=== PATIENT | male | born 1990 | race Caucasian/White ===

== ENCOUNTER 2020-10-09 14:06 | Emergency (ER) | payer OTHER, SELFPAY ==
[2020-10-09 14:20] VITALS: BP 108/78; PULSE 89; RESP 16; TEMP 36.9; O2SAT 93; BMI 31.5
[2020-10-09 14:38] VITALS: BP 133/82
--- NOTE | 2020-10-09 14:40 | XRR_ITS ---
PROCEDURE INFORMATION: Exam: XR Chest Exam date and time: 10/09/2020 2:40 PM Age: 30 years old Clinical indication: Cough TECHNIQUE: Imaging protocol: XR of the chest. Views: 1 view. COMPARISON: No relevant prior studies available. FINDINGS: Lungs: Unremarkable. No consolidation. Pleural spaces: Unremarkable. No pleural effusion. No pneumothorax. Heart/Mediastinum: Unremarkable. No cardiomegaly. Bones/joints: Unremarkable. XR/XR chest 1V portable [id number] IMPRESSION: No acute findings.
--- NOTE | 2020-10-09 14:40 | W.ED.COVID ---
HPI - COVID General: Chief Complaint: COVID symptoms Stated Complaint: congestion, hot flashes, lethargic Time Seen by Provider: 10/09/20 14:36 Triage information: Has fever, cough or shortness of breath. Exposure to COVID + person last 14 days History of Present Illness: HPI Narrative: Patient has been off work and sick since the of this month. Is scheduled for surgery on his back he has 2 herniated disc. Patient has had upper respiratory problems and lung problems and been placed on albuterol inhaler and doxycycline here recently. Been tested for Covid weekly at work is been negative. Did have a positive exposure on of this month not been tested since then. Has Covid-like symptoms which include muscle aches headache sore throat loss of taste and smell nausea. MD complaint: reported COVID exposure Prior covid testing: yes, results known COVID 19 common symptoms: positive chills, cough, non-productive cough, fatigue, body aches, headache(s), throat pain and nausea COVID 19 other sytmptoms: negative chest pain Onset (ago): day(s) Severity: moderate Pertinent comorbid conditions: other (Asthma) COVID Results: No Data to Display Review of Systems Const: Reports: chills, body aches and fatigue Eyes: Denies: change in vision or blurry vision ENMT: Reports: throat pain Card: Denies: chest pain or dyspnea on exertion Resp: Reports: non-productive cough GI: Reports: nausea : Denies: difficulty urinating Musc: Denies: extremity pain Skin/Breast: Denies: rash Neuro: Reports: headache(s) Psych: Denies: anxiety or depression Bakari/Lymph: Denies: easy bruising PFSH ED PFSH: Social History (Updated 09/30/20 @ 12:46 by Nilson Palomares LPN) Smoking and tobacco status: never smoked Alcohol intake: current Alcohol intake frequency: holidays/special occasions only Physical Exam Const: COMMON NORMALS: no acute distress, average body habitus and patient oriented x3 HENMT: COMMON NORMALS: normocephalic HEAD & SCALP: normal to inspection and normocephalic FACE & SINUS: normal facial exam Eye: COMMON NORMALS: conjunctivae normal GENERAL EYE: appearance normal, both eyes and all related structures CONJUNCTIVA: Yes conjunctivae normal Neck/C-Spine: COMMON NORMALS: no JVD Chest: COMMONS NORMALS: normal inspection of the chest Resp: COMMON NORMALS: normal respiratory effort AUSCULTATION: rhonchi lower bilaterally Cardio: COMMON NORMALS: no JVD, regular rate and regular rhythm RATE: regular rate RHYTHM: regular rhythm GI: COMMON NORMALS: Normal to inspection, nondistended, normoactive bowel sounds present Extremity: COMMON NORMALS: normal to inspection and full ROM Neuro: COMMON NORMALS: patient oriented x3 Course Vital Signs: Vital signs: Vital Signs Temperature 98.5 F 10/09/20 14:20 Pulse Rate 89 10/09/20 14:20 Respiratory Rate 16 10/09/20 14:20 Blood Pressure 133/82 10/09/20 14:38 Pulse Oximetry 93 10/09/20 14:20 MDM - COVID COVID Results: No Data to Display Discharge Plan Discharge Prescriptions: No Action gabapentin 300 mg capsule 300 mg PO BID RF: 0 albuterol sulfate 1.25 mg/3 mL solution for nebulization 1.25 mg inhalation QID PRN (Reason: shortness of breath or wheezing) Qty: 75 RF: 0 doxycycline hyclate 100 mg tablet 100 mg PO BID 7 Days Qty: 14 RF: 0 albuterol sulfate [Ventolin HFA] 90 mcg/actuation HFA aerosol inhaler 2 puff inhalation Q6H PRN (Reason: shortness of breath or wheezing) Qty: 8.5 RF: 0 Coding Level of Care Code ED Er Medical Technician for Willem Godwin
[2020-10-09 15:52] LABS: SARS Covid-2 Antigen Negative (Negative)
[2020-10-09 16:58] VITALS: BP 133/82
== END 2020-10-09 16:58 | disposition home or self-care (01) ==
PROVIDERS: Emergency Provider Nurse Practitioner Family
DX: Z20.822 Contact with and (suspected) exposure to COVID-19 (principal)
CPT/HCPCS: 71045; 87426; 99282

== ENCOUNTER → 2022-05-24 12:02 | Outpatient (BNVA) | payer OTHER, SELFPAY | DX: M79.641 Pain in right hand (principal) | CPT/HCPCS: 73130 ==